=== PATIENT | female | born 1990 | race Caucasian/White ===

== ENCOUNTER 2017-11-13 15:44 | Emergency (ER) | payer SELFPAY ==
--- NOTE | 2017-11-13 18:20 | RADIOLOGY REPORT (SQ) ---
EXAM DESCRIPTION: CHEST 2 VIEWS COMPLETED DATE/TIME: 11/13/2017 6:08 pm REASON FOR STUDY: cough COMPARISON: None. EXAM PARAMETERS: NUMBER OF VIEWS: two views TECHNIQUE: Digital Frontal and Lateral radiographic views of the chest acquired. RADIATION DOSE: NA LIMITATIONS: none FINDINGS: LUNGS AND PLEURA: No opacities, masses or pneumothorax. No pleural effusion. MEDIASTINUM AND HILAR STRUCTURES: No masses or contour abnormalities. HEART AND VASCULAR STRUCTURES: Heart normal size. No evidence for failure. BONES: No acute findings. HARDWARE: None in the chest. OTHER: No other significant finding. IMPRESSION: NO ACUTE RADIOGRAPHIC FINDING IN THE CHEST. TECHNICAL DOCUMENTATION: JOB ID: [id number] [employer]- All Rights Reserved Reading location - IP/workstation name: [email or web address]
[2017-11-13] MEDS ORDERED: DOXYCYCLINE HYCLATE 100 MG TABLET PO ONE (18:37)
--- NOTE | 2017-11-13 18:37 | ER Document Report ---
ED Medical Screen (RME) - General Chief Complaint: Congestion Stated Complaint: HEAD CONGESTION Time Seen by Provider: 11/13/17 16:52 Mode of Arrival: Ambulatory Information source: Patient Notes: This is a 27-year-old female who does have a history of an AKIL positive and has been told she may have lupus who presents to the emergency room with sore throat , swollen right lymph node, generalized malaise and a cough productive of green sputum. Patient has had subjective chills. Patient denies any abdominal pain. Patient denies any nausea or vomiting. Patient denies any headache or photophobia. Past medical history: AKIL positive No known drug allergies Past surgical history: Tonsillectomy Primary CARE physician: Wale Social: Cigarettes negative TRAVEL OUTSIDE OF THE [place] IN LAST 30 DAYS: No - HPI Onset: Last week Onset/Duration: Gradual Quality of pain: Achy, Dull Severity: Mild Associated Symptoms: Chills, Cough (productive), Sore throat. denies: Shortness of breath Exacerbated by: Denies Relieved by: Denies Similar symptoms previously: Yes Recently seen / treated by doctor: No - Related Data Smoking: Non-smoker Frequency of alcohol use: None Drug Abuse: None Allergies/Adverse Reactions: No Known Allergies Allergy (Unverified 10/16/13 22:55) Past Medical History - General Information source: Patient - Social History Cigarette use (# per day): No Chew tobacco use (# tins/day): No Frequency of alcohol use: None Drug Abuse: None Lives with: Family Family history: None - Medical History Medical History: Other - AKIL positive, possible lupus - Past Medical History Cardiac Medical History: Reports: None Pulmonary Medical History: Reports: None EENT Medical History: Reports: None Neurological Medical History: Reports: None Endocrine Medical History: Reports: None Renal/ Medical History: Reports: None. Denies: Hx Peritoneal Dialysis Malignancy Medical History: Reports: None GI Medical History: Reports: None Skin Medical History: Reports None Psychiatric Medical History: Reports: None Traumatic Medical History: Reports: None Infectious Medical History: Reports: None Past Surgical History: Reports: Hx Tonsillectomy Review of Systems - Review of Systems Constitutional: Chills, Malaise. denies: Fever EENT: Throat pain, Other - Tender lymphadenopathy submandibular Cardiovascular: No symptoms reported Respiratory: Cough, Sputum. denies: Hemoptysis, Short of breath Gastrointestinal: No symptoms reported Genitourinary: No symptoms reported Female Genitourinary: No symptoms reported Musculoskeletal: No symptoms reported Skin: No symptoms reported Hematologic/Lymphatic: No symptoms reported Neurological/Psychological: No symptoms reported Physical Exam - Vital signs Vitals: Temp Pulse Resp BP Pulse Ox 98.1 F 97 18 143/90 H 99 11/13/17 15:48 11/13/17 15:48 11/13/17 15:48 11/13/17 15:48 11/13/17 15:48 Notes: Physical exam: GENERAL: A 7-year-old female, alert and oriented 3, no acute distress. HEAD: Atraumatic, normocephalic. EYES: Pupils equal round and reactive to light, extraocular movements intact, sclera anicteric, conjunctiva are normal. ENT: TMs normal, nares patent, oropharynx erythematous without exudates. Moist mucous membranes. NECK: Patient does have tender submandibular lymph nodes on the right. Normal range of motion, supple. LUNGS: Breath sounds clear to auscultation bilaterally and equal. No wheezes rales or rhonchi. HEART: Regular rate and rhythm without murmurs, rubs or gallops. ABDOMEN: Soft, normoactive bowel sounds. No tenderness to palpation. No guarding, no rebound. No masses appreciated. EXTREMITIES: Normal range of motion, no pitting or edema. No clubbing or cyanosis. NEUROLOGICAL: Cranial nerves II through XII grossly intact. Normal speech, moving all extremities. PSYCH: Normal mood, normal affect. SKIN: Warm, Dry, normal turgor, no rashes or lesions noted. Course - Re-evaluation Re-evalutation: 11/13/17 18:35 Note: The formal report by radiology is that there is no infiltrates. I thought there may be possible early infiltrate on the right. In any event, I am going to start the patient on antibiotics because of the issue of immunosuppression. Because of the formal report on the x-ray being no infiltrate, the diagnosis will be bronchitis (she has a cough productive of a green sputum) and she will be given an antibiotic because of her immune suppression. - Vital Signs Vital signs: Temp Pulse Resp BP Pulse Ox 98.1 F 97 18 143/90 H 99 11/13/17 15:48 11/13/17 15:48 11/13/17 15:48 11/13/17 15:48 11/13/17 15:48 - Diagnostic Test Radiology reviewed: Image reviewed, Reports reviewed - The formal report by radiology is that there is no infiltrates. Doctor's Discharge - Discharge Clinical Impression: Acute bronchitis Condition: Stable Disposition: HOME, SELF-CARE Additional Instructions: Recommendations: Rest, drink plenty of fluids. Take Mucinex as an expectorant. Start the doxycycline. Take as prescribed. Follow-up with your primary care doctor: I think for all to her strategic debriefing specialist is a good idea to answer the issue of lupus. Return to the emergency room for worsening pain, swelling , difficulty eating, not tolerating food, shortness of breath or any concerns or getting worse. Prescriptions: Doxycycline Hyclate 100 mg PO BID #20 capsule Forms: Return to Work
[2017-11-13 18:48] VITALS: BP 112/73
== END 2017-11-13 18:49 | disposition home or self-care (01) ==
LOC: ER 15:44
DX: J20.9 Acute bronchitis, unspecified (principal); R53.81 Other malaise
CPT/HCPCS: 36415; 71046; 84702; 86308; 99284

== ENCOUNTER 2018-05-01 15:05 | Emergency (ER) | payer BC ==
[2018-05-01] MEDS ORDERED: KETOROLAC TROMETHAMINE INJ/PF 30 MG/1 ML SDV IV ONE (16:55)
[2018-05-01] MEDS ORDERED: NORMAL SALINE 1000 ML 1,000 ML IV ONE (16:55)
[2018-05-01] MEDS ORDERED: ONDANSETRON HCL INJ/PF 4 MG/2 ML SDV IV ONE (16:55)
--- NOTE | 2018-05-01 16:57 | ER Document Report ---
ED Medical Screen (RME) - General Chief Complaint: Upper Abdominal Pain Stated Complaint: ABDOMINAL PAIN Time Seen by Provider: 05/01/18 16:48 Notes: This is a pleasant 27-year-old female to the emergency department for evaluation of right upper quadrant and epigastric tenderness. Patient states that it began this morning. Patient has a recent diet change and has been doing a low-carb high-fat diet. Has lost 16 pounds. Today she developed pain in the right upper quadrant epigastric region. Some mild achiness in the right shoulder. Significant amount of nausea but has not vomited. No fever. No diarrhea. No chest pain. When she takes a deep breath it hurts in the right upper quadrant. Patient does have a history of lupus. I have greeted and performed a rapid initial assessment of this patient. A comprehensive ED assessment and evaluation of the patient, analysis of test results and completion of the medical decision making process will be conducted by additional ED providers. TRAVEL OUTSIDE OF THE [place] IN LAST 30 DAYS: No - Related Data Allergies/Adverse Reactions: No Known Allergies Allergy (Verified 05/01/18 15:05) Past Medical History - Social History Frequency of alcohol use: None Family history: None Renal/ Medical History: Denies: Hx Peritoneal Dialysis Past Surgical History: Reports: Hx Tonsillectomy Physical Exam - Vital signs Vitals: Temp Pulse Resp BP Pulse Ox 98.5 F 100 16 133/75 H 96 05/01/18 15:10 05/01/18 15:10 05/01/18 15:10 05/01/18 15:10 05/01/18 15:10 Interpretation: Tachycardic - Respiratory Respiratory status: No respiratory distress Chest status: Nontender Breath sounds: Normal Chest palpation: Normal - Cardiovascular Rhythm: Tachycardia Heart sounds: Normal auscultation Murmur: No - Abdominal Tenderness: Tender, Rachel's sign, Guarding Course - Vital Signs Vital signs: Temp Pulse Resp BP Pulse Ox 98.5 F 100 16 133/75 H 96 05/01/18 15:10 05/01/18 15:10 05/01/18 15:10 05/01/18 15:10 05/01/18 15:10
[2018-05-01 17:44] LABS: ABSOLUTE BASOPHILS # (AUTO) 0.1 10^3/uL (0.0-0.2); ABSOLUTE EOSINOPHILS # (AUTO) 0.2 10^3/uL (0.0-0.6); ABSOLUTE LYMPHOCYTES (AUTO) 1.2 10^3/uL (0.5-4.7); ABSOLUTE MONOCYTES (AUTO) 0.5 10^3/uL (0.1-1.4); ABSOLUTE NEUT (AUTO) 10.3 10^3/uL (1.7-8.2); BASOPHILS % (AUTO) 0.5 % (0-2); EOSINOPHILS % (AUTO) 1.2 % (0-6); HEMATOCRIT 40.3 % (36.0-47.0); HEMOGLOBIN 13.6 g/dL (12.0-15.5); LYMPHOCYTES % (AUTO) 10.1 % (13-45); MEAN CORPUSCULAR HEMOGLOBIN 26.7 pg (27.0-33.4); MEAN CORPUSCULAR HGB CONC 33.7 g/dL (32.0-36.0); MEAN CORPUSCULAR VOLUME 79 fl (80-97); MONOCYTES % (AUTO) 3.9 % (3-13); PLATELET COUNT 369 10^3/uL (150-450); RED BLOOD COUNT 5.09 10^6/uL (3.72-5.28); RED CELL DISTRIBUTION WIDTH 13.4 % (11.5-14.0); SEGMENTED NEUTROPHILS % (AUTO) 84.3 % (42-78); TOTAL CELLS COUNTED % (AUTO) 100 %; WHITE BLOOD COUNT 12.2 10^3/uL (4.0-10.5)
[2018-05-01 17:51] LABS: APPEARANCE,URINE CLEAR; BILIRUBIN,URINE NEGATIVE (NEGATIVE); COLOR,URINE YELLOW; GLUCOSE, URINE NEGATIVE (NEGATIVE); KETONES,URINE NEGATIVE (NEGATIVE); LEUKOCYTE ESTERASE,URINE NEGATIVE (NEGATIVE); NITRITE,URINE NEGATIVE (NEGATIVE); PROTEIN,URINE NEGATIVE (NEGATIVE); URINE SPECIFIC GRAVITY 1.024; UROBILINOGEN,URINE NEGATIVE mg/dL (<2.0)
[2018-05-01 18:01] LABS: ALANINE AMINOTRANSFERASE 44 U/L (9-52); ALBUMIN 4.8 g/dL (3.5-5.0); ALKALINE PHOSPHATASE 72 U/L (38-126); ANION GAP 11 (5-19); ASPARTATE AMINO TRANSFERASE 32 U/L (14-36); BILIRUBIN,DIRECT 0.1 mg/dL (0.0-0.4); BILIRUBIN,TOTAL 0.7 mg/dL (0.2-1.3); BLOOD UREA NITROGEN 15 mg/dL (7-20); CALCIUM 8.9 mg/dL (8.4-10.2); CARBON DIOXIDE 26 mmol/L (22-30); CHLORIDE 102 mmol/L (98-107); GLUCOSE 87 mg/dL (75-110); LIPASE 75.9 U/L (23-300); POTASSIUM 4.3 mmol/L (3.6-5.0); SODIUM 139.4 mmol/L (137-145); TOTAL PROTEIN 7.6 g/dL (6.3-8.2)
--- NOTE | 2018-05-01 18:22 | RADIOLOGY REPORT (SQ) ---
EXAM DESCRIPTION: U/S ABDOMEN LIMITED W/O DOP COMPLETED DATE/TIME: 05/01/2018 6:06 pm REASON FOR STUDY: ruq pain COMPARISON: None. TECHNIQUE: Dynamic and static grayscale images acquired of the abdomen and recorded on PACS. Additio nal selected color Doppler and spectral images recorded. LIMITATIONS: None. FINDINGS: PANCREAS: No masses. No peripancreatic edema or fluid collections. LIVER: Echotexture is coarse with increased echogenicity consistent with fatty infiltration. LIVER VASCULATURE: Normal directional flow of the main portal vein and hepatic veins. GALLBLADDER: No stones. Normal wall thickness. No pericholecystic fluid. ULTRASOUND-DETECTED NAPOLES'S SIGN: Negative. INTRAHEPATIC DUCTS AND COMMON DUCT: CBD and intrahepatic ducts normal caliber. No filling defects. INFERIOR VENA CAVA: Normal flow. AORTA: No aneurysm. RIGHT KIDNEY: Normal size. Normal echogenicity. 1.2 cm cortical cyst. No solid or suspicious ma sses. No hydronephrosis. No calcifications. PERITONEAL AND RIGHT PLEURAL SPACE: No ascites or effusions. OTHER: No other significant finding. IMPRESSION: FATTY INFILTRATION OF THE LIVER. SMALL CORTICAL CYST IN THE RIGHT KIDNEY. OTHERWISE UN REMARKABLE RIGHT UPPER QUADRANT ULTRASOUND. TECHNICAL DOCUMENTATION: JOB ID: [id number] [employer]- All Rights Reserved Reading location - IP/workstation name: [email or web address]
--- NOTE | 2018-05-01 19:32 | ER Document Report ---
ED General - General Chief Complaint: Upper Abdominal Pain Stated Complaint: ABDOMINAL PAIN Time Seen by Provider: 05/01/18 16:48 Primary Care Provider: LEENA TAN MD [Primary Care Provider] - Follow up in 3-5 days Notes: Patient is a 27-year-old female who presents to the emergency department with a chief complaint of right upper quadrant abdominal pain. She states that her pain started in her epigastric area and moved along to the right side and at the time of presentation to the emergency department her pain was primarily in the right upper quadrant. Her pain went throughout the day, and she felt nauseous b ut did not throw up. She states that she started eating healthier, and has lost 16 pounds recently. She received some Toradol and Zofran in triage and states that she feels better after receiving those 2 medications. She has a history of PCOS and fatty liver disease. TRAVEL OUTSIDE OF THE [place] IN LAST 30 DAYS: No - Related Data Allergies/Adverse Reactions: No Known Allergies Allergy (Verified 05/01/18 15:05) Past Medical History - Social History Smoking Status: Never Smoker Frequency of alcohol use: None Family History: Other - Gallstones Patient has suicidal ideation: No Patient has homicidal ideation: No Renal/ Medical History: Denies: Hx Peritoneal Dialysis Past Surgical History: Reports: Hx Tonsillectomy Review of Systems - Review of Systems Notes: REVIEW OF SYSTEMS: CONSTITUTIONAL : Denies recent illness. Denies recent unintentional weight loss. Denies fever, chills, or sweats. EENT: Denies eye, ear, throat, or mouth pain, discharge, or symptoms. Denies nasal or sinus congestion. CARDIOVASCULAR: Denies chest pain. RESPIRATORY: Denies shortness of breath, cough, congestion, difficulty breathing, or wheezing. GASTROINTESTINAL: See HPI. GENITOURINARY: Denies difficulty urinating, burning, blood in urine, urgency or frequency. MUSCULOSKELETAL: Denies neck and back pain. Denies joint pain or swelling. SKIN: Denies rash, itchiness, or lesions HEMATOLOGIC : Denies easy bruising or bleeding. LYMPHATIC: Denies swollen, painful, enlarged glands. NEUROLOGICAL: Denies no numbness or tingling denies weakness. Denies headache. Denies altered mental status. Denies alteration in speech. PSYCHIATRIC: Denies stress, anxiety, alteration in sleep patterns, or depression. All other systems reviewed and negative. Physical Exam - Vital signs Vitals: Temp Pulse Resp BP Pulse Ox 98.5 F 100 16 133/75 H 96 05/01/18 15:10 05/01/18 15:10 05/01/18 15:10 05/01/18 15:10 05/01/18 15:10 - Notes Notes: PHYSICAL EXAMINATION: GENERAL: Appears well, healthy, well-nourished, no acute distress. HEAD: Normocephalic, atraumatic. EYES: PERRL, conjunctiva normal, all extraocular movements intact, sclera nonicteric ENT: Moist mucous membranes. NECK: Supple, no noticeable swelling, redness, rash. Normal range of motion. LUNGS: Equal breath sounds bilaterally and clear to auscultation. No wheezes rales or rhonchi. CARDIOVASCULAR: S1-S2, regular rate, regular rhythm. Radial pulses 2+, normal. ABDOMEN: Normoactive bowel sounds. Soft, tender right upper quadrant, no guarding, no rebound tenderness, and no masses palpated. EXTREMITIES: Normal strength and range of motion, no pitting or edema. No cyanosis. NEUROLOGICAL: Moves all extremities upon command. Strength 5/5 in all extremities. PSYCH: Normal mood, normal affect. SKIN: Warm, dry. No rash, lesions, ulcerations noted. Normal skin turgor. Course - Re-evaluation Re-evalutation: 05/01/18 19:32 Patient states that she feels better after receiving Toradol and Zofran. She does have a small cortical cyst on her kidney and fatty liver disease, which she already knew about. Her lipase is normal and her chemistries are normal. She does have a leukocytosis, but most likely caused by her abdominal pain etiology. I suspect her pain is most likely due to her fatty liver disease. She does not have gallstones on ultrasound. I have given her instructions on a low fat diet. Verbal discharge instructions were given to the patient. They verbalized understanding. They are stable for discharge. - Vital Signs Vital signs: Temp Pulse Resp BP Pulse Ox 98.3 F 81 16 117/67 100 05/01/18 19:57 05/01/18 19:57 05/01/18 19:57 05/01/18 19:57 05/01/18 19:57 - Laboratory Result Diagrams: 05/01/18 17:23 05/01/18 17:23 Laboratory results interpreted by me: 05/01/18 05/01/18 17:23 17:23 WBC 12.2 H MCV 79 L MCH 26.7 L Seg Neutrophils % 84.3 H Lymphocytes % 10.1 L Absolute Neutrophils 10.3 H Urine Blood SMALL H Discharge - Discharge Clinical Impression: Fatty liver disease, nonalcoholic Abdominal pain Qualifiers: Abdominal location: right upper quadrant Qualified Code(s): R10.11 - Right upper quadrant pain Condition: Stable Disposition: HOME, SELF-CARE Instructions: Abdominal Pain ([facility]), Low-Fat Diet ([facility]), Toradol Injection ([facility]) Additional Instructions: You were seen today in the emergency department for abdominal pain. The cause of your abdominal pain is most likely due to your fatty liver disease. Please stay away from fatty foods like oils, nuts, avocados, or any foods that are high in fats, as this may exacerbate the pain in your abdomen. You have been given Zofran, medication for nausea and vomiting. You may take 1 tablet every 4-6 hours as needed. Please follow-up with your primary care provider in regards to this visit. You may take ibuprofen 600 mg every 6 hours as needed for pain. If you have worsening pain, have symptoms that are worrisome to you, consistently throw up, or have any symptoms that are worrisome to you, please return to the emergency department. Referrals: LEENA TAN MD [Primary Care Provider] - Follow up in 3-5 days
[2018-05-01 19:57] VITALS: BP 117/67
== END 2018-05-01 19:57 | disposition home or self-care (01) ==
LOC: ER 15:05
DX: K76.0 Fatty (change of) liver, not elsewhere classified (principal); R10.11 Right upper quadrant pain; R10.13 Epigastric pain
CPT/HCPCS: 99284; 96361; 96374; 96375; 36415; 83690; 84703; 85025; 80053; 81001; 76705; J1885; J2405; J7030

== ENCOUNTER 2018-09-25 18:30 | Emergency (ER) | payer BC ==
[2018-09-25 18:40] VITALS: BP 129/71
--- NOTE | 2018-09-25 19:53 | ER Document Report ---
ED Medical Screen (RME) - General Chief Complaint: Abdominal Pain Stated Complaint: OB PROBLEM Time Seen by Provider: 09/25/18 19:48 Primary Care Provider: LEENA TAN MD [Primary Care Provider] - Follow up as needed Information source: Patient Notes: Patient presents 18 weeks . Patient complains of lower pelvic pain and no movement for the past 2 days. Patient is . Patient states that she was recently treated for UTI. Patient denies any vaginal bleeding or discharge. I have greeted and performed a rapid initial assessment of this patient. A comprehensive ED assessment and evaluation of the patient, analysis of test results and completion of the medical decision making process will be conducted by additional ED providers. TRAVEL OUTSIDE OF THE [place] IN LAST 30 DAYS: No - Related Data Allergies/Adverse Reactions: No Known Allergies Allergy (Verified 09/25/18 18:31) Past Medical History - Social History Chew tobacco use (# tins/day): No Drug Abuse: None Family history: None Renal/ Medical History: Denies: Hx Peritoneal Dialysis Past Surgical History: Reports: Hx Tonsillectomy - 2007 Physical Exam - Vital signs Vitals: Temp Pulse Resp BP Pulse Ox 99.1 F 99 16 129/71 H 98 09/25/18 18:39 09/25/18 18:39 09/25/18 18:39 09/25/18 18:39 09/25/18 18:39 - Abdominal Tenderness: Tender - Lower pelvic Course - Vital Signs Vital signs: Temp Pulse Resp BP Pulse Ox 99.1 F 99 16 129/71 H 98 09/25/18 18:39 09/25/18 18:39 09/25/18 18:39 09/25/18 18:39 09/25/18 18:39 Doctor's Discharge - Discharge Referrals: LEENA TAN MD [Primary Care Provider] - Follow up as needed
[2018-09-25 20:25] LABS: APPEARANCE,URINE CLOUDY; BILIRUBIN,URINE NEGATIVE (NEGATIVE); COLOR,URINE AMBER; GLUCOSE, URINE 50 mg/dL (NEGATIVE); KETONES,URINE TRACE mg/dL (NEGATIVE); LEUKOCYTE ESTERASE,URINE SMALL (NEGATIVE); NITRITE,URINE NEGATIVE (NEGATIVE); PROTEIN,URINE 30 mg/dL (NEGATIVE); URINE SPECIFIC GRAVITY 1.032; UROBILINOGEN,URINE NEGATIVE mg/dL (<2.0)
--- NOTE | 2018-09-25 21:22 | RADIOLOGY REPORT (SQ) ---
EXAM DESCRIPTION: [facility]: US FOLLOW UP CLINICAL HISTORY: 28 years Female; pelvic pain, no movement TECHNIQUE: Transabdominal obstetrical ultrasound was performed. COMPARISON: None. FINDINGS: Number of fetuses: Single position: Vertex BPD: 18 weeks 3 days, 4.11 cm HC: 18 weeks 5 days, 15.77 cm AC: 18 weeks 6 days, 13.45 cm FL: 20 weeks 0 days, 3.23 cm EFW: 288 g (43%) HR: 153 BPM Anatomy: Visualized portions are unremarkable in this limited exam Amniotic fluid: LVP 5.3 cm, adequate Cervix: 3.2 cm Placenta: Posterior Right ovary: Simple anechoic 5.3 x 7.9 x 6.5 cm cyst Left ovary: Within normal limits No free fluid IMPRESSION: 1. Single viable IUP, EGA 19 weeks 0 days, EDC 02/19/2019 2. 5.3 x 7.9 x 6.5 cm simple right ovarian cyst 3. No free fluid
== END 2018-09-25 22:40 | disposition left against medical advice (07) ==
LOC: ER 18:30
DX: O26.92 Pregnancy related conditions, unspecified, second trimester (principal); R10.2 Pelvic and perineal pain; R10.9 Unspecified abdominal pain; Z3A.18 18 weeks gestation of pregnancy
CPT/HCPCS: 76805; 81001; 99281

== ENCOUNTER 2019-01-23 12:04 | Outpatient (CLI) | payer BC ==
[2019-01-23 14:13] LABS: APPEARANCE,URINE CLEAR; BILIRUBIN,URINE NEGATIVE (NEGATIVE); COLOR,URINE LIGHT YELLOW; GLUCOSE, URINE NEGATIVE (NEGATIVE); KETONES,URINE NEGATIVE (NEGATIVE)
[2019-01-23 14:14] LABS: ADD MANUAL MICROSCOPIC YES; BACTERIA,URINE 3+ /HPF; LEUKOCYTE ESTERASE,URINE SMALL (NEGATIVE); NITRITE,URINE NEGATIVE (NEGATIVE); PROTEIN,URINE NEGATIVE (NEGATIVE); RBC,URINE RARE /HPF; URINE SPECIFIC GRAVITY 1.014; UROBILINOGEN,URINE NEGATIVE mg/dL (<2.0)
[2019-01-23 14:41] LABS: URINE AMPHETAMINES SCREEN NEGATIVE; URINE BARBITURATES SCREEN NEGATIVE; URINE BENZODIAZEPINES SCREEN NEGATIVE; URINE COCAINE SCREEN NEGATIVE; URINE MARIJUANA (THC) SCREEN NEGATIVE; URINE METHADONE SCREEN NEGATIVE; URINE PHENCYCLIDINE SCREEN NEGATIVE
[2019-01-23] MEDS ORDERED: FERROUS SULFATE 325 MG TABLET PO SCH (18:00)
== END 2019-01-23 14:38 | disposition home or self-care (01) ==
LOC: LC 12:04
PROVIDERS: ATTEND Student in an Organized Health Care Education/Training Program
PROC: 4A1HXCZ Monitoring of Products of Conception, Cardiac Rate, External Approach (ICD-10-PCS; principal; 2019-01-23)
DX: O36.8130 Decreased fetal movements, third trimester, not applicable or unspecified (principal); O24.410 Gestational diabetes mellitus in pregnancy, diet controlled; Z3A.35 35 weeks gestation of pregnancy
CPT/HCPCS: 80307; 81001

== ENCOUNTER 2019-01-28 00:23 | Inpatient (IN) | payer BC ==
[2019-01-28] MEDS ORDERED: OXYTOCIN 10 UNIT/ML VIAL ONE (00:28)
[2019-01-28] MEDS ORDERED: MISOPROSTOL 0.2 MG TABLET ONE (00:28)
[2019-01-28] MEDS ORDERED: LIDOCAINE 1% INJ-PF (10 MG/ML) 30 ML SDV ONE (00:28)
[2019-01-28] MEDS ORDERED: OXYTOCIN/NORMAL SALINE 20 UNIT/1,000 ML RTUINJ ONE (00:28)
[2019-01-28] MEDS ORDERED: PENICILLIN G-K 5 MILLION UNIT VIAL ONE (00:37)
[2019-01-28] MEDS ORDERED: RINGERS SOLUTION,LACTATED 1,000 ML IV PRN (00:39)
[2019-01-28] MEDS ORDERED: PENICILLIN G POTASSIUM 5,000,000 UNIT in DEXTROSE 5%-WATER 100 ML IV ONE (01:00)
[2019-01-28] MEDS ORDERED: RINGERS SOLUTION,LACTATED 1,000 ML IV ONE (01:00)
--- NOTE | 2019-01-28 01:03 | Admission Physical ---
Datetime Report Generated by CPN: 01/28/2019 01:03 CURRENT ADMISSION Chief Complaint: Uterine Contractions Indication for Induction: Not Applicable Admit Impression : Term, Intrauterine Admit Plan: Initiate Labor Protocol ALLERGIES Medication Allergies: No Medication Allergies: No Known Allergies (01/23/2019) Latex: No Latex Allergies OBSTETRICAL HISTORY EDC: 02/25/2019 00:00 : 6 Para: 2 Term: 1 : 1 SAB: 3 Livin SEE RECORDS Alcohol: No Marijuana : No Cocaine: No Other Illicit Drugs: No Cigarettes: Never Smoker. [id number] PHYSICAL EXAM General: Normal HEENT: Normal Neurologic: Normal Thyroid: Normal Heart: Normal Lungs: Normal Breast: Deferred Back: Normal Abdomen: Normal Genitourinary Exam: Normal Extremities: Normal DTRs: Normal Pelvic Type: Adequate FETUS A EGA: 36.0 INFORMED CONSENT Signature: with User ID: [email or web address]
[2019-01-28] MEDS ORDERED: INFLUENZA QUAD (6MOS+) 2019-20 VAC 0.5 ML SYR IM ONE (01:07)
[2019-01-28] MEDS ORDERED: GLYCERIN/WITCH HAZEL LEAF 1 EACH MED..WIPE TP PRN (01:10)
[2019-01-28] MEDS ORDERED: ZOLPIDEM TARTRATE 5 MG TABLET PO PRN (01:10)
[2019-01-28] MEDS ORDERED: ACETAMINOPHEN 650 MG SUPP.RECT PR PRN (01:10)
[2019-01-28] MEDS ORDERED: PROMETHAZINE HCL INJ 25 MG/1 ML VIAL IV PRN (01:10)
[2019-01-28] MEDS ORDERED: MAGNESIUM HYDROXIDE SUSP 30 ML UDCUP PO PRN (01:10)
[2019-01-28] MEDS ORDERED: OXYTOCIN/NORMAL SALINE 20 UNIT/1,000 ML RTUINJ IV PRN (01:10)
[2019-01-28] MEDS ORDERED: PROMETHAZINE HCL 25 MG SUPP.RECT PR PRN (01:10)
[2019-01-28] MEDS ORDERED: DIPH/PERTUSS(ACELL)/TETANUS VAC/PF 0.5 ML SYR (>=10YO) IM PRN (01:10)
[2019-01-28] MEDS ORDERED: BENZOCAINE/MENTHOL AEROSOL SPRAY 56 ML TOP PRN (01:10)
[2019-01-28] MEDS ORDERED: MEASLES,MUMPS&RUBELLA VACC/PF 0.5 ML VIAL SUBCUT PRN (01:10)
[2019-01-28] MEDS ORDERED: PSEUDOEPHEDRINE HCL 30 MG TABLET PO PRN (01:10)
[2019-01-28] MEDS ORDERED: DIBUCAINE 1% OINTMENT 56 GM TP PRN (01:10)
[2019-01-28] MEDS ORDERED: DIPHENHYDRAMINE HCL 25 MG CAPSULE PO PRN (01:10)
[2019-01-28] MEDS ORDERED: PROMETHAZINE HCL 25 MG TABLET PO PRN (01:10)
[2019-01-28] MEDS ORDERED: NA PHOS,M-B/NA PHOS,DI-BA (ADULT) 133 ML ENEMA PR PRN (01:10)
[2019-01-28 01:19] LABS: ABSOLUTE BASOPHILS # (AUTO) 0.1 10^3/uL (0.0-0.2); ABSOLUTE EOSINOPHILS # (AUTO) 0.2 10^3/uL (0.0-0.6); ABSOLUTE LYMPHOCYTES (AUTO) 4.1 10^3/uL (0.5-4.7); ABSOLUTE MONOCYTES (AUTO) 1.3 10^3/uL (0.1-1.4); ABSOLUTE NEUT (AUTO) 13.3 10^3/uL (1.7-8.2); BASOPHILS % (AUTO) 0.4 % (0-2); HEMATOCRIT 41.7 % (36.0-47.0); HEMOGLOBIN 13.6 g/dL (12.0-15.5); LYMPHOCYTES % (AUTO) 21.6 % (13-45); MEAN CORPUSCULAR HEMOGLOBIN 26.6 pg (27.0-33.4); MEAN CORPUSCULAR HGB CONC 32.7 g/dL (32.0-36.0); MEAN CORPUSCULAR VOLUME 81 fl (80-97); MONOCYTES % (AUTO) 6.7 % (3-13); PLATELET COUNT 375 10^3/uL (150-450); RED BLOOD COUNT 5.13 10^6/uL (3.72-5.28); RED CELL DISTRIBUTION WIDTH 13.9 % (11.5-14.0); SEGMENTED NEUTROPHILS % (AUTO) 70.3 % (42-78); TOTAL CELLS COUNTED % (AUTO) 100 %
[2019-01-28 04:21] LABS: APPEARANCE,URINE CLOUDY; BILIRUBIN,URINE NEGATIVE (NEGATIVE); COLOR,URINE RED; GLUCOSE, URINE NEGATIVE (NEGATIVE); KETONES,URINE 20 mg/dL (NEGATIVE); LEUKOCYTE ESTERASE,URINE TRACE (NEGATIVE); NITRITE,URINE NEGATIVE (NEGATIVE); PROTEIN,URINE 100 mg/dL (NEGATIVE); URINE SPECIFIC GRAVITY 1.019; UROBILINOGEN,URINE NEGATIVE mg/dL (<2.0)
--- NOTE | 2019-01-28 04:21 | Delivery Summary ---
Del Sum A-C Datetime Report Generated by CPN: 01/28/2019 04:20 DELIVERY PERSONNEL DELIVERY PERSONNEL: [id number] Delivery Doctor:: Shilo Smith MD Labor and Delivery Nurse:: RADHA Orantes Labor and Delivery Nurse:: GIOVANNA Dickinsonry Nurse:: Marcy Ott RN Oil Rigger/CLINICAL MARKETING MANAGER: Isabella Ross, ST MATERNAL INFORMATION Delivery Anesthesia: None Medications After Delivery: Pitocin Bolus-Please Comment Meds After Delivery Comment: Pitocin bolus following placenta Delivery QBL: 400 Maternal Complications: None LABOR SUMMARY EDC: 02/25/2019 00:00 No. Babies in Womb: 1 Attempted: No Labor Anesthesia: Intrathecal LABOR INFORMATION Reason for Induction: Not Applicable Onset of Labor: 01/27/2019 20:51 Complete Dilatation: 01/28/2019 00:43 Oxytocin: N/A Group B Beta Strep: unknown Antibiotics # of Doses: 0 Steroids Given: Full Course Reason Steroids Not Administered: Indication MEMBRANES Membranes Rupture Method: Spontaneous Rupture of Membranes: 01/28/2019 00:50 Length of Rupture (hr): 0.10 Amniotic Fluid Color: Clear Amniotic Fluid Amount: Small Amniotic Fluid Odor: None STAGES OF LABOR Stage 1 hr: 3 Stage 1 min: 52 Stage 2 hr: 0 Stage 2 min: 13 Stage 3 hr: 0 Stage 3 min: 2 Total Time in Labor hr: 4 Total Time in Labor min: 7 VAGINAL DELIVERY Episiotomy: None Laceration #1: None Laceration Extension #1: N/A Laceration Repair: Not Applicable Sponge Count Correct: N/A Sharps Count Correct: N/A CSECTION DELIVERY Primary Indication: N/A Secondary Indication: N/A CSection Incidence: N/A Labor: N/A Elective: N/A CSection Incision: N/A BABY A INFORMATION Delivery Date/Time: 01/28/2019 00:56 Method of Delivery: Vaginal Born in Route : No : N/A Forceps: N/A Vacuum Extraction: N/A Shoulder Dystocia : No PRESENTATION/POSITION BABY A Presentation: Cephalic Cephalic Presentation: Vertex Breech Presentation: N/A PLACENTA INFORMATION BABY A Placenta Delivery Time : 01/28/2019 00:58 Placenta Method of Delivery: Spontaneous Placenta Status: Delivered SCORES BABY A Heart Rate 1 min: >100 bpm Resp Effort 1 min: Absent Reflex Irritability 1 min: Grimace Muscle Tone 1 min: Flaccid Color 1 min: Blue/Pale SCORE 1 MIN: 3 Heart Rate 5 min: >100 bpm Resp Effort 5 min: Good Cry Reflex Irritability 5 min: Cough or Sneeze or Pulls Away Muscle Tone 5 min: Some Flexion of Extremities Color 5 min: Body [place], Extremities Blue SCORE 5 MIN: 8 INFORMATION BABY A Gestational Age at Delivery: 35.0 Gestational Status: Late - 34- 36.6 Weeks Infant Outcome : Liveborn Condition : Stable Infant Sex: Female IDENTIFICATION BABY A Verification Date/Time: 01/28/2019 01:43 ID Band Number: [id number] Mother's Name Verified: Yes RN Verifying : Bernadettertin,RN Additional Verifying Personnel: [facility] WEIGHT/LENGTH BABY A Infant Birthweight (gm): 3020 Weight (lb): 6 Infant Weight (oz): 11 Length (in): 19.50 Length (cm): 49.53 CORD INFORMATION BABY A No. Cord Vessels: 3 Nuchal Cord : N/A Cord Blood Taken: Yes-For Storage (Mom's Blood type +) Suction: Mouth; Nose ASSESSMENT BABY A Infant Complications: None Physical Findings at Delivery: Within Normal Limits Physical Findings- Other: see initial nursery assessment Respirations: Appears Normal Skin to Skin: Yes Skin to Skin Time (min): 40 Hip Hop Artist/ALS Called : No Care By: Tea Ott RN Transferred To: Remains with Mother SIGNATURES Signature: with User ID: [email or web address]
[2019-01-28 04:23] LABS: ADD MANUAL MICROSCOPIC YES; BACTERIA,URINE 1+ /HPF; RBC,URINE TOO NUMEROUS TO CNT /HPF
[2019-01-28 04:47] LABS: URINE AMPHETAMINES SCREEN NEGATIVE; URINE BARBITURATES SCREEN NEGATIVE; URINE BENZODIAZEPINES SCREEN NEGATIVE; URINE COCAINE SCREEN NEGATIVE; URINE MARIJUANA (THC) SCREEN NEGATIVE; URINE METHADONE SCREEN NEGATIVE; URINE PHENCYCLIDINE SCREEN NEGATIVE
[2019-01-28] MEDS: IBUPROFEN 800 MG TABLET PO SCH ×3 (05:56→21:38)
[2019-01-28] MEDS ORDERED: PENICILLIN G POTASSIUM 2,500,000 UNIT in DEXTROSE 5%-WATER 50 ML IV SCH (06:00)
--- NOTE | 2019-01-28 10:01 | PDOC PROGRESS REPORT ---
Subjective-OB Progress Note for:: 01/28/19 Subjective: PPD 0, del this am. Reports moderate bleeding, slowing down, voiding without difficulty. Reg diet. Physical Exam (OB) Vital Signs: Temp Pulse Resp BP Pulse Ox 98.4 F 100 18 131/66 H 99 01/28/19 08:08 01/28/19 08:08 01/28/19 08:08 01/28/19 08:08 01/28/19 08:08 - PIH/Pre-Eclampsia DTR's: 2 + Clonus: Negative Headache: Absent Epigastric Pain: No Visual Changes: No - Lochia Lochia Amount: Scant < 10 ml Lochia Color: Rubra/Red - Abdomen Description: Tender, Soft Hernia Present: No Fundal Description: Firm, Midline Fundal Height: u/u - u/2 Objective-Diagnostic Laboratory: 01/28/19 01:03 EST 01/28/19 01/28/19 01/28/19 01:03 EST 01:03 EST 01:50 EST WBC 19.0 H RBC 5.13 Hgb 13.6 Hct 41.7 MCV 81 MCH 26.6 L MCHC 32.7 RDW 13.9 Plt Count 375 Seg Neutrophils % 70.3 Urine Color RED Urine Appearance CLOUDY Urine pH 6.0 Ur Specific [place] 1.019 Urine Protein 100 H Urine Glucose (UA) NEGATIVE Urine Ketones 20 H Urine Blood LARGE H Urine Nitrite NEGATIVE Ur Leukocyte Esterase TRACE H Ur Squamous Epith Cells MODERATE Blood Type A POSITIVE Antibody Screen NEGATIVE Assessment and Plan(PN) - Assessment and Plan (1) labor with delivery Is this a current diagnosis for this admission?: Yes (2) Gestational diabetes Qualifiers: Gestational diabetes mellitus control: diet-controlled Trimester: unspecified trimester Qualified Code(s): O24.410 - Gestational diabetes mellitus in , diet controlled Is this a current diagnosis for this admission?: Yes (3) Obesity Qualifiers: Obesity type: unspecified obesity type Obesity classification: unspecified obesity classification Serious obesity comorbidity presence: without serious c omorbidity Qualified Code(s): E66.9 - Obesity, unspecified Is this a current diagnosis for this admission?: Yes (4) Delivery normal Is this a current diagnosis for this admission?: Yes - Time Spent with Patient Time with patient: Less than 15 minutes Medications reviewed and adjusted accordingly: Yes - Disposition Anticipated Discharge: Home Within: within 48 hours
[2019-01-28] MEDS: FAMOTIDINE 20 MG TABLET PO SCH ×2 (10:31→21:39)
[2019-01-28] MEDS: FERROUS SULFATE 325 MG TABLET PO SCH ×2 (10:31→17:31)
[2019-01-28] MEDS: SENNOSIDES/DOCUSATE 8.6-50 MG 1 EACH TABLET PO SCH (10:31)
[2019-01-28] MEDS: DOCUSATE SODIUM 100 MG CAPSULE PO SCH ×2 (10:31→17:31)
[2019-01-28] MEDS: PRENATAL VITAMIN W DHA CAPSULE PO SCH (10:31)
[2019-01-28] MEDS: ACETAMINOPHEN WITH CODEINE #3 TABLET PO PRN ×2 (14:54→21:38)
[2019-01-29] MEDS: IBUPROFEN 800 MG TABLET PO SCH ×3 (05:26→22:33)
[2019-01-29 07:24] LABS: HEMATOCRIT 35.9 % (36.0-47.0); MEAN CORPUSCULAR HGB CONC 33.4 g/dL (32.0-36.0); MEAN CORPUSCULAR VOLUME 81 fl (80-97); PLATELET COUNT 330 10^3/uL (150-450); RED BLOOD COUNT 4.44 10^6/uL (3.72-5.28); RED CELL DISTRIBUTION WIDTH 14.3 % (11.5-14.0); WHITE BLOOD COUNT 11.7 10^3/uL (4.0-10.5)
--- NOTE | 2019-01-29 08:37 | PDOC PROGRESS REPORT ---
Subjective-OB Progress Note for:: 01/29/19 Subjective: Doing well, no c/o, ready to go home, unsure if baby can go, , had a girl Physical Exam (OB) Vital Signs: Temp Pulse Resp BP Pulse Ox 98.3 F 92 14 135/74 H 100 01/29/19 08:00 01/29/19 08:00 01/29/19 08:00 01/29/19 08:00 01/29/19 08:00 - PIH/Pre-Eclampsia DTR's: 2 + Clonus: Negative Headache: Absent Epigastric Pain: No Visual Changes: No - Lochia Lochia Amount: Scant < 10 ml Lochia Color: Rubra/Red - Abdomen Description: Soft, Round Hernia Present: No Fundal Description: Firm, Midline Fundal Height: u/u - u/2 Objective-Diagnostic Laboratory: 01/29/19 06:55 01/29/19 06:55 WBC 11.7 H RBC 4.44 Hgb 12.0 Hct 35.9 L MCV 81 MCH 27.0 MCHC 33.4 RDW 14.3 H Plt Count 330 Assessment and Plan(PN) - Assessment and Plan (1) Gestational diabetes Qualifiers: Gestational diabetes mellitus control: diet-controlled Trimester: u nspecified trimester Qualified Code(s): O24.410 - Gestational diabetes me llitus in , diet controlled Is this a current diagnosis for this admission?: Yes (2) Obesity Qualifiers: Obesity type: unspecified obesity type Obesity classification: unspecified obesity classification Serious obesity comorbidity presence: without serious comorbidity Qualified Code(s): E66.9 - Obesity, unspecified Is this a current diagnosis for this admission?: Yes (3) labor with delivery Is this a current diagnosis for this admission?: Yes (4) Delivery normal Is this a current diagnosis for this admission?: Yes - Time Spent with Patient Time with patient: Less than 15 minutes Medications reviewed and adjusted accordingly: Yes - Disposition Anticipated Discharge: Home Within: within 24 hours
[2019-01-29] MEDS: FAMOTIDINE 20 MG TABLET PO SCH ×2 (09:27→22:33)
[2019-01-29] MEDS: SENNOSIDES/DOCUSATE 8.6-50 MG 1 EACH TABLET PO SCH (09:27)
[2019-01-29] MEDS: FERROUS SULFATE 325 MG TABLET PO SCH ×2 (09:27→18:59)
[2019-01-29] MEDS: PRENATAL VITAMIN W DHA CAPSULE PO SCH (09:27)
[2019-01-29] MEDS: DOCUSATE SODIUM 100 MG CAPSULE PO SCH ×2 (09:27→18:59)
[2019-01-29] MEDS: ACETAMINOPHEN WITH CODEINE #3 TABLET PO PRN (19:03)
[2019-01-30] MEDS: ACETAMINOPHEN WITH CODEINE #3 TABLET PO PRN (00:58)
[2019-01-30] MEDS: IBUPROFEN 800 MG TABLET PO SCH ×2 (08:29→14:05)
--- NOTE | 2019-01-30 09:07 | PDOC DISCHARGE SUMMARY ---
Impression - Admit/DC Date/PCP Admission Date/Primary Care Provider: 01/28/19 00:42 LEENA TAN MD Discharge Date: 01/30/19 - PP Day #2, doing well, breast feeding, A+, Rubella Non Immune - Discharge Diagnosis (1) Gestational diabetes Is this a current diagnosis for this admission?: Yes (2) Obesity Is this a current diagnosis for this admission?: Yes (3) labor with delivery Is this a current diagnosis for this admission?: Yes (4) Delivery normal Is this a current diagnosis for this admission?: Yes - Additional Information Resuscitation Status: Full Code Discharge Diet: As Tolerated, Regular [facility] Prescriptions: Ibuprofen [Motrin 800 mg Tablet] 800 mg PO Q8 #60 tablet Home Medications: No.137/Iron/Folic Acd [ Vitamin Tablet] 1 tab PO DAILY 10/16/13 Ibuprofen [Motrin 800 mg Tablet] 800 mg PO Q8 #60 tablet 01/30/19 HPI Gestational Age: 36 Reason(s) for Admission: Onset of Labor Procedures: Ultrasound Intrapartum Procedure(s): Spontaneous Vaginal Delivery Hospital Course Hospital Course: routine Results Laboratory Results: WBC 11.7 10^3/uL (4.0-10.5) H 01/29/19 06:55 RBC 4.44 10^6/uL (3.72-5.28) 01/29/19 06:55 Hgb 12.0 g/dL (12.0-15.5) 01/29/19 06:55 Hct 35.9 % (36.0-47.0) L 01/29/19 06:55 MCV 81 fl (80-97) 01/29/19 06:55 MCH 27.0 pg (27.0-33.4) 01/29/19 06:55 MCHC 33.4 g/dL (32.0-36.0) 01/29/19 06:55 RDW 14.3 % (11.5-14.0) H 01/29/19 06:55 Plt Count 330 10^3/uL (150-450) 01/29/19 06:55 Lymph % (Auto) 21.6 % (13-45) 01/28/19 01:03 EST [place] % (Auto) 6.7 % (3-13) 01/28/19 01:03 EST Eos % (Auto) 1.0 % (0-6) 01/28/19 01:03 EST Baso % (Auto) 0.4 % (0-2) 01/28/19 01:03 EST Absolute Neuts (auto) 13.3 10^3/uL (1.7-8.2) H 01/28/19 01:03 EST Absolute Lymphs (auto) 4.1 10^3/uL (0.5-4.7) 01/28/19 01:03 EST Absolute Monos (auto) 1.3 10^3/uL (0.1-1.4) 01/28/19 01:03 EST Absolute Eos (auto) 0.2 10^3/uL (0.0-0.6) 01/28/19 01:03 EST Absolute Basos (auto) 0.1 10^3/uL (0.0-0.2) 01/28/19 01:03 EST Seg Neutrophils % 70.3 % (42-78) 01/28/19 01:03 EST Urine Color RED 01/28/19 01:50 EST Urine Appearance CLOUDY 01/28/19 01:50 EST Urine pH 6.0 (5.0-9.0) 01/28/19 01:50 EST Ur Specific [place] 1.019 01/28/19 01:50 EST Urine Protein 100 mg/dL (NEGATIVE) H 01/28/19 01:50 EST Urine Glucose (UA) NEGATIVE mg/dL (NEGATIVE) 01/28/19 01:50 EST Urine Ketones 20 mg/dL (NEGATIVE) H 01/28/19 01:50 EST Urine Blood LARGE (NEGATIVE) H 01/28/19 01:50 EST Urine Nitrite NEGATIVE (NEGATIVE) 01/28/19 01:50 EST Urine Bilirubin NEGATIVE (NEGATIVE) 01/28/19 01:50 EST Urine Urobilinogen NEGATIVE mg/dL (<2.0) 01/28/19 01:50 EST Ur Leukocyte Esterase TRACE (NEGATIVE) H 01/28/19 01:50 EST Urine RBC TOO NUMEROUS TO CNT /HPF 01/28/19 01:50 EST Urine WBC 5-10 /HPF 01/28/19 01:50 EST Ur Squamous Epith Cells MODERATE /HPF 01/28/19 01:50 EST Urine Bacteria 1+ /HPF 01/28/19 01:50 EST Urine Ascorbic Acid 20 (NEGATIVE) H 01/28/19 01:50 EST Urine Opiates Screen NEGATIVE 01/28/19 01:50 EST Urine Methadone Screen NEGATIVE 01/28/19 01:50 EST Ur Barbiturates Screen NEGATIVE 01/28/19 01:50 EST Ur Phencyclidine Scrn NEGATIVE 01/28/19 01:50 EST Ur Amphetamines Screen NEGATIVE 01/28/19 01:50 EST U Benzodiazepines Scrn NEGATIVE 01/28/19 01:50 EST Urine Cocaine Screen NEGATIVE 01/28/19 01:50 EST U Marijuana (THC) Screen NEGATIVE 01/28/19 01:50 EST RPR NONREACTIVE (NONREACTIVE) 01/28/19 01:03 EST Blood Type A POSITIVE 01/28/19 01:03 EST Antibody Screen NEGATIVE 01/28/19 01:03 EST Plan Health Concerns: will d/c to home in stable condition. Pt to f/u with [facility] in 4 wks Time Spent: Less than 30 Minutes
[2019-01-30] MEDS: DOCUSATE SODIUM 100 MG CAPSULE PO SCH ×2 (09:12→17:19)
[2019-01-30] MEDS: SENNOSIDES/DOCUSATE 8.6-50 MG 1 EACH TABLET PO SCH (09:12)
[2019-01-30] MEDS: FERROUS SULFATE 325 MG TABLET PO SCH ×2 (09:12→17:19)
[2019-01-30] MEDS: PRENATAL VITAMIN W DHA CAPSULE PO SCH (09:12)
[2019-01-30] MEDS: FAMOTIDINE 20 MG TABLET PO SCH (09:12)
[2019-01-30 11:54] VITALS: BP 135/74
== END 2019-01-30 18:30 | disposition home or self-care (01) | DRG 807 ==
LOC: LC 00:23 → LR 00:42 → 2S 02:06
PROVIDERS: ADMIT Obstetrics & Gynecology Gynecology; ATTEND Obstetrics & Gynecology Gynecology
PROC: 10E0XZZ Delivery of Products of Conception, External Approach (ICD-10-PCS; principal; 2019-01-28)
PROC: 3E02340 Introduction of Influenza Vaccine into Muscle, Percutaneous Approach (ICD-10-PCS; 2019-01-30)
PROC: 3E0234Z Introduction of Serum, Toxoid and Vaccine into Muscle, Percutaneous Approach (ICD-10-PCS; 2019-01-30)
DX: O60.14X0 Preterm labor third trimester with preterm delivery third trimester, not applicable or unspecified (principal); O24.420 Gestational diabetes mellitus in childbirth, diet controlled; O99.214 Obesity complicating childbirth; E66.9 Obesity, unspecified; Z37.0 Single live birth; Z3A.36 36 weeks gestation of pregnancy; Z23 Encounter for immunization
CPT/HCPCS: 36415; 80307; 81001; 85025; 85027; 86592; 86850; 86900; 86901; 90686; 90707; J2540; J2590; J3490; J7060

== ENCOUNTER 2019-10-13 21:38 | Emergency (ER) | payer BC, MEDICAID ==
--- NOTE | 2019-10-13 21:51 | ER Document Report ---
ED Medical Screen (RME) - General Chief Complaint: Chest Pain Stated Complaint: CHEST PAIN ANDLEFT ARM PAIN Time Seen by Provider: 10/13/19 21:40 Primary Care Provider: LEENA TAN MD [Primary Care Provider] - Follow up as needed Mode of Arrival: Ambulatory Information source: Patient Notes: Patient is a 29-year-old female presenting to the emergency department concern for chest pain. Patient reports she has pain intermittently over the last 3 weeks which is becoming more persistent. She denies any alleviating or exacerbating factors. She reports the pain is located on the left side of her chest, radiates up into her jaw, straight through to her back and down into her left arm. She denies any nausea, vomiting or diaphoresis when these episodes occur. Patient keeps stating "I think it is my heart". She has no cardiac history, she is a non-smoker however she is morbidly obese. She is currently breast-feeding and does not take any medications. Today she did take 324 mg of baby aspirin. Patient alert, oriented, no acute distress noted. Heart sounds S1-S2 present, normal rate normal rhythm. I have greeted and performed a rapid initial assessment of this patient. A comprehensive ED assessment and evaluation of the patient, analysis of test results and completion of the medical decision making process will be conducted by additional ED providers. I have specifically instructed the patient or family members with the patient to immediately return to any nursing staff should anything change in the patient's condition or with their chief complaint. TRAVEL OUTSIDE OF THE [place] IN LAST 30 DAYS: No - Related Data Allergies/Adverse Reactions: No Known Allergies Allergy (Verified 01/28/19 01:35 EDT) Past Medical History - Social History Family history: None Renal/ Medical History: Denies: Hx Peritoneal Dialysis Past Surgical History: Reports: Hx Tonsillectomy - 2007 Doctor's Discharge - Discharge Referrals: LEENA TAN MD [Primary Care Provider] - Follow up as needed
[2019-10-13 22:11] LABS: ABSOLUTE BASOPHILS # (AUTO) 0.1 10^3/uL (0.0-0.2); ABSOLUTE EOSINOPHILS # (AUTO) 0.4 10^3/uL (0.0-0.6); ABSOLUTE LYMPHOCYTES (AUTO) 4.5 10^3/uL (0.5-4.7); ABSOLUTE MONOCYTES (AUTO) 0.8 10^3/uL (0.1-1.4); ABSOLUTE NEUT (AUTO) 4.8 10^3/uL (1.7-8.2); BASOPHILS % (AUTO) 1.1 % (0-2); EOSINOPHILS % (AUTO) 3.4 % (0-6); HEMATOCRIT 42.1 % (36.0-47.0); HEMOGLOBIN 14.1 g/dL (12.0-15.5); LYMPHOCYTES % (AUTO) 42.4 % (13-45); MEAN CORPUSCULAR HEMOGLOBIN 26.5 pg (27.0-33.4); MEAN CORPUSCULAR HGB CONC 33.5 g/dL (32.0-36.0); MEAN CORPUSCULAR VOLUME 79 fl (80-97); MONOCYTES % (AUTO) 7.2 % (3-13); PLATELET COUNT 396 10^3/uL (150-450); RED BLOOD COUNT 5.33 10^6/uL (3.72-5.28); RED CELL DISTRIBUTION WIDTH 12.3 % (11.5-14.0); SEGMENTED NEUTROPHILS % (AUTO) 45.9 % (42-78); TOTAL CELLS COUNTED % (AUTO) 100 %; WHITE BLOOD COUNT 10.5 10^3/uL (4.0-10.5)
--- NOTE | 2019-10-13 22:23 | RADIOLOGY REPORT (SQ) ---
EXAM DESCRIPTION: XR CHEST 2 VIEWS COMPLETED DATE/TME: 10/13/2019 21:45 CLINICAL HISTORY: 29 years, Female, chest pain COMPARISON: Prior study from 11/13/2017. NUMBER OF VIEWS: 2 TECHNIQUE: Frontal and lateral radiograph are obtained LIMITATIONS: None. FINDINGS: Cardiac and mediastinal contours are stable. Lungs are clear. No pleural effusion or pneumothorax. IMPRESSION: No acute disease. copyright 2010 [email or web address]- All Rights Reserved
[2019-10-13 22:42] LABS: ALBUMIN 4.4 g/dL (3.5-5.0); ALKALINE PHOSPHATASE 70 U/L (38-126); ANION GAP 6 (5-19); ASPARTATE AMINO TRANSFERASE 44 U/L (14-36); BILIRUBIN,TOTAL 0.3 mg/dL (0.2-1.3); BLOOD UREA NITROGEN 14 mg/dL (7-20); CALCIUM 9.1 mg/dL (8.4-10.2); CARBON DIOXIDE 28 mmol/L (22-30); CHLORIDE 102 mmol/L (98-107); CREATINE KINASE 79 U/L (30-135); GLUCOSE 111 mg/dL (75-110); POTASSIUM 4.2 mmol/L (3.6-5.0); TOTAL PROTEIN 7.3 g/dL (6.3-8.2)
[2019-10-13 23:02] LABS: CREATINE KINASE MB < 0.22 ng/mL (<4.55); TROPONIN I < 0.012 ng/mL
[2019-10-14] MEDS ORDERED: KETOROLAC TROMETHAMINE INJ/PF 30 MG/1 ML SDV IM ONE (00:52)
--- NOTE | 2019-10-14 02:24 | ER Document Report ---
ED General - General Chief Complaint: Chest Pain Stated Complaint: CHEST PAIN ANDLEFT ARM PAIN Time Seen by Provider: 10/13/19 21:40 Primary Care Provider: ILIR DELAROSA MD [ACTIVE STAFF] - Follow up as needed LEENA TAN MD [COMMUNITY BASED STAFF] - Follow up as needed Mode of Arrival: Ambulatory Notes: 29-year-old female with past medical history of PCO S presenting with left-sided chest and neck pain. States that she has had the pain for approximately 3 weeks and has worsened in the last 2 days. States the pain feels that it inside of her left chest, not substernal and then will radiate up towards her neck and into her mid scapula. Pain is described as dull and constant. She continues to state that it feels inside and spreads. States that her left arm will occasionally go numb. She denies any shortness of breath or cough. She has not taken anything for the pain because she is hesitant to take medications as she is breast-feeding. She is a mother of 3 children. Notes an increase in stress due to having to take care of her father in the last week. She denies any fevers, chills, or additional symptoms at this time. TRAVEL OUTSIDE OF THE [place] IN LAST 30 DAYS: No - Related Data Allergies/Adverse Reactions: No Known Allergies Allergy (Verified 01/28/19 01:35 EDT) Past Medical History - General Information source: Patient - Social History Smoking Status: Unknown if Ever Smoked Family History: Other - Gallstones Patient has homicidal ideation: No Renal/ Medical History: Denies: Hx Peritoneal Dialysis Past Surgical History: Reports: Hx Tonsillectomy - 2007 Review of Systems - Review of Systems Constitutional: No symptoms reported EENT: No symptoms reported Cardiovascular: See HPI Respiratory: No symptoms reported Gastrointestinal: No symptoms reported Genitourinary: No symptoms reported Female Genitourinary: No symptoms reported Musculoskeletal: See HPI Skin: No symptoms reported Hematologic/Lymphatic: No symptoms reported Neurological/Psychological: No symptoms reported Physical Exam - Vital signs Vitals: Temp Pulse Resp BP Pulse Ox 98.6 F 88 16 136/77 H 100 10/13/19 21:48 10/13/19 21:48 10/13/19 21:48 10/13/19 21:48 10/13/19 21:48 Interpretation: Normal - Notes Notes: Adult General: GENERAL: Alert, interacts well. No acute distress HEAD: Normocephalic, atraumatic EYES: Extraocular movements intact. ENT: Oral mucosa moist, tongue midline. Oropharynx unremarkable. Airway patent. Nares patent. NECK: Full range of motion. Supple. Trachea midline. No lymphadenopathy. LUNGS: Clear to auscultation bilaterally, no wheezes, rales, or rhonchi. No respiratory distress. Tenderness to left anterior chest wall. HEART: Regular rate and rhythm. No murmurs, rubs or gallops. ABDOMEN: Soft, nontender. Nondistended. Bowel sounds present in all 4 quadrants. No rebound, guarding or masses. GENITOURINARY: Deferred EXTREMITIES: Moves all 4 extremities spontaneously. No edema, normal radial and dorsal pedis pulses bilaterally. No cyanosis. BACK: Tightness along left scapula. No cervical, thoracic, lumbar midline tenderness. No saddle anesthesia, normal distal neurovascular exam. Moves all extremities with full range of motion. NEUROLOGICAL: Alert and oriented x3. Normal speech. Cranial nerves II through XII grossly intact. Strength 5/ 5 in all extremities. PSYCH: Normal affect, normal mood. SKIN: Warm, dry, normal turgor. No rashes or lesions noted. Course - Re-evaluation Re-evalutation: 10/14/19 02:24 Patient's EKG shows sinus rhythm at 88, W[place] interval of 128, QTC of 435. No ST segment depressions or elevations. There are few nonspecific T wave abnormalities. Chest x-ray is unremarkable. Her troponins are both negative. She was provided IM Toradol she reports that her symptoms have improved. I do not suspect ACS as cause of patients symptoms. I recommend that she follows up with her primary care provider for her symptoms to discuss possible vasospasm and her low tsh. I discussed that I recommend she takes ibuprofen if NSAIDs have helped to improve her symptoms. Discussed that she can return to the emergency department if she has worsening symptoms or development of new symptoms. - Vital Signs Vital signs: Temp Pulse Resp BP Pulse Ox 97.9 F 88 16 112/71 97 10/14/19 03:37 10/13/19 21:48 10/14/19 03:36 10/14/19 03:37 10/14/19 03:36 - Laboratory Result Diagrams: 10/13/19 21:58 10/13/19 21:58 Laboratory results interpreted by me: 10/13/19 10/13/19 10/13/19 21:58 21:58 21:58 RBC 5.33 H MCV 79 L MCH 26.5 L Sodium 136.2 L Glucose 111 H AST 44 H ALT 60 H TSH 0.30 L - EKG Interpretation by Me Additional EKG results interpreted by me: 10/14/19 02:25 EKG shows sinus rhythm at 88, [place] interval of 128, QTC of 435. No ST segment depressions or elevations. There are few nonspecific T wave abnormalities Discharge - Discharge Clinical Impression: Low TSH level Chest pain Qualifiers: Chest pain type: unspecified Qualified Code(s): R07.9 - Chest pain, unspecified Condition: Stable Disposition: HOME, SELF-CARE Instructions: Chest Pain of Unclear Cause ([facility]) Additional Instructions: Please follow-up with your primary care provider soon as possible for follow up of your thyroid. You may follow-up with the emergency department if you have worsening symptoms or development of new symptoms. Also recommend that you follow-up with Dr. Delarosa, a clinical psychology teacher. Referrals: LEENA TAN MD [COMMUNITY BASED STAFF] - Follow up as needed ILIR DELAROSA MD [ACTIVE STAFF] - Follow up as needed
[2019-10-14 03:41] VITALS: BP 112/71
--- NOTE | 2019-10-14 08:40 | EKG REPORT ---
SEVERITY:- ABNORMAL ECG - SINUS RHYTHM NONSPECIFIC T ABNORMALITIES, INFERIOR LEADS : Confirmed by: Jairo Billings MD 14-Oct-2019 08:40:01
== END 2019-10-14 03:41 | disposition home or self-care (01) ==
LOC: ER 21:38
DX: R07.9 Chest pain, unspecified (principal); M54.2 Cervicalgia; R20.0 Anesthesia of skin; R79.89 Other specified abnormal findings of blood chemistry
CPT/HCPCS: 93005; 99285; 96372; 36415; 82553; 82550; 83735; 84443; 85025; 80053; 84484; 71046; 93010; J1885